=== PATIENT | female | born 1970 | race Caucasian/White ===

== ENCOUNTER 2017-08-28 08:34 | Day surgery (SDC) | payer BC, OTHER ==
[~2017-08-28 08:34] MED LIST: LIDOCAINE 2% INJ 100 MG/5 ML SDV (FOR ANES.) As Ordered; MIDAZOLAM INJ 2 MG/2 ML VIAL (J2250) As Ordered; PROPOFOL 200 MG/20 ML VIAL As Ordered; fentaNYL 100 MCG/2 ML INJECTION (J3010) As Ordered
[2017-08-28] MEDS ORDERED: ceFAZolin 2 GM/D5W 50 ML IV BAG (J0690 PER 500MG) As Ordered (09:06)
[2017-08-28] MEDS ORDERED: LR 1,000 ML IV (09:15)
[2017-08-28 09:32] LABS: URINE PREG TEST NEGATIVE (NEGATIVE)
[2017-08-28 09:33] LABS: CONTROL LINE UCG INT CTR LINE PRESENT
[2017-08-28] MEDS ORDERED: MIDAZOLAM INJ 2 MG/2 ML VIAL (J2250) As Ordered (09:49)
[2017-08-28] MEDS ORDERED: PROPOFOL 200 MG/20 ML VIAL As Ordered ×2 (10:23→11:06)
[2017-08-28] MEDS ORDERED: dexameTHASONE 4 MG/ML 1ML VIAL (J1100) As Ordered ×2 (10:27)
[2017-08-28] MEDS ORDERED: ONDANSETRON 4MG/2ML VIAL (J2405) As Ordered (10:27)
[2017-08-28] MEDS ORDERED: KETOROLAC 60 MG/2 ML VIAL (J1885) As Ordered (10:27)
[2017-08-28] MEDS ORDERED: METOCLOPRAMIDE INJ 10MG/2ML VIAL (J2765) As Ordered (10:30)
[2017-08-28] MEDS: BACITRACIN PWD 50,000 UNITS VIAL As Ordered (10:35)
[2017-08-28] MEDS: dexameTHASONE 4 MG/ML 1ML VIAL (J1100) As Ordered (10:35)
[2017-08-28] MEDS: NEOSPORIN GU IRRIG 20 ML VIAL As Ordered (10:36)
[2017-08-28] MEDS: LIDOCAINE 2% MDV 20 ML VIAL As Ordered (10:36)
[2017-08-28] MEDS: BUPIVACAINE HCL 0.5% 30 ML VIAL As Ordered (10:36)
[2017-08-28] MEDS ORDERED: ePHEDrine INJ 50 MG/ML VIAL As Ordered (10:40)
== END 2017-08-28 13:15 | disposition home or self-care (01) ==
LOC: M SDC 08:34
DX: M20.12 Hallux valgus (acquired), left foot (principal); M21.622 Bunionette of left foot; M85.40 Solitary bone cyst, unspecified site
CPT/HCPCS: 28296